=== PATIENT | male | born 1940 | race Caucasian/White ===

== ENCOUNTER 2018-11-30 07:58 | Observation (INO) | payer MEDICARE ==
[2018-11-30] VITALS (10 sets, daily range): BP systolic 111–145; BP diastolic 56–102
[~2018-11-30] VITALS: Ht 175.3 cm; Wt 68.0 kg
[~2018-11-30 07:58] MED LIST: ASPI-630 PO; BACITRACIN 50,000 UNIT in IV NORMAL SALINE 500ML BAG 500 ML IRR ONE; HYDROmorphone 2 MG/ML VIAL IV PRN; IV RINGERS,LACTATED 1000ML 1,000 ML IV SCH; LEVO25TA4 PO; LIDOCAINE 1% PF 2 ML VIAL. ID PRN; MORPHINE SULFATE 2 MG/ML VIAL. IV PRN; ONDANSETRON PF 4 MG/2 ML VIAL. IV PRN; PROCHLORPERAZINE 10 MG/2 ML VIAL. IV PRN; fentaNYL PF VIAL 100 MCG/2 ML VIAL IV PRN
[2018-11-30] MEDS ORDERED: FAMOTIDINE 20 MG/2 ML VIAL ONE (08:12)
[2018-11-30] MEDS ORDERED: LIDOCAINE 2% PF 5 ML VIAL. ONE (08:12)
[2018-11-30] MEDS ORDERED: ONDANSETRON PF 4 MG/2 ML VIAL. ONE (08:12)
[2018-11-30] MEDS ORDERED: PROPOFOL 20 ML IV ONE (08:12)
[2018-11-30] MEDS ORDERED: DEXAMETHASONE SOD PHOS 20 MG/5 ML VIAL. ONE (08:12)
[2018-11-30] MEDS ORDERED: SUCCINYLCHOLINE 200 MG/10 ML VIAL. ONE (08:14)
[2018-11-30] MEDS ORDERED: MIDAZOLAM HCL/PF 2 MG/2 ML VIAL. ONE (08:14)
[2018-11-30] MEDS ORDERED: fentaNYL PF VIAL 100 MCG/2 ML VIAL ONE (08:14)
[2018-11-30] MEDS ORDERED: BUPIVAC MPF-EPI 0.5%-1:200000 30 ML VIAL. ONE (08:26)
[2018-11-30] MEDS ORDERED: LIDOCAINE 4% KIT 4 ML SOLUTION. TP ONE (09:26)
[2018-11-30] MEDS ORDERED: ROCURONIUM 50 MG/5 ML VIAL. ONE (09:48)
[2018-11-30] MEDS ORDERED: ePHEDrine PF IN SALINE 50 MG/10 ML SYRINGE. IV ONE (09:53)
[2018-11-30] MEDS ORDERED: BACITRACIN 50,000 UNIT in IV NORMAL SALINE 500ML BAG 500 ML IRR ONE (10:00)
[2018-11-30] MEDS ORDERED: GLYCOPYRROLATE 1 MG/5 ML VIAL. ONE (10:06)
[2018-11-30] MEDS ORDERED: SEVOFLURANE 31 TO 60 MINUTES. IH ONE (10:36)
[2018-11-30] MEDS ORDERED: IV 1/2 NORMAL SALINE 1,000 ML IV SCH (10:44)
--- NOTE | 2018-11-30 10:44 | PDOC4 ---
Operative Note Operative Note Operative Note: Preoperative Diagnosis: Recurrent left inguinal hernia Postoperative Diagnosis: Same Procedure: Repair of recurrent left inguinal hernia with mesh Surgeon: Glynn Key Account Director: Lisa BLOCK Anesthesia: Gen. EBL: 10 mL Specimen: None Drains: None Complications: None Indication: The patient is a 78-year-old male who is referred with a recurrent left inguinal hernia. He was offered operative repair. The risks of surgery were discussed which include bleeding, infection, anesthetic risk, pain, hernia recurrence, potential need for additional surgery or procedure. He understands and would like to proceed. Description: The patient was taken to the operating room and placed supine on the operating table. Gen. anesthesia was performed. The left groin was shaved and prepped with ChloraPrep and draped in a standard surgical manner. An incision was made in the skin lines of the left groin with a scalpel. Cautery dissection was carried down to the external oblique aponeurosis. The aponeurosis was opened down the external ring. The patient did have some scar tissue due to prior hernia repair surgery. We were able to identify the vas deferens and other cord structures and they were encircled with a [place] drain. Inspection of the inguinal floor showed a small hernia defect. The edges of the hernia defect were dissected free. The extruded contents were reduced and the defect was filled with a medium Phasix mesh plug. The plug was sutured around its periphery with 2-0 Vicryl. The entire inguinal floor was then reinforced with a keyhole Prolene mesh patch. Inferiorly the mesh was sutured to the shelving edge of the inguinal ligament while superiorly it was sutured to the internal oblique muscle and aponeurosis. Upon completion the mesh rested well providing full coverage of the inguinal floor and the plug remained intact deep to it. The external oblique was closed over the mesh with 2-0 Vicryl. The subcutaneous tissues closed with 3-0 Vicryl. The skin was approximated with 4-0 Monocryl. Incision was infiltrated with half percent Marcaine with epinephrine. Steri-Strips and a sterile dressing were applied. The patient tolerated the procedure well and was sent to the recovery room in stable condition. At the end of the case all counts were correct. AVERY SOUSA MD Nov 30, 2018 10:44
[2018-11-30] MEDS ORDERED: 0.9 % SODIUM CHLORIDE 10 ML DISP.SYRIN. IV PRN (10:45)
[2018-11-30] MEDS ORDERED: MORPHINE SULFATE 2 MG/ML VIAL. IV PRN (10:45)
[2018-11-30] MEDS ORDERED: ONDANSETRON PF 4 MG/2 ML VIAL. IV PRN (10:45)
[2018-11-30] MEDS ORDERED: PROCHLORPERAZINE 10 MG/2 ML VIAL. IV PRN (10:45)
[2018-11-30] MEDS ORDERED: HYDROcodone/APAP 5/325MG 1 TAB TABLET PO PRN ×2 (10:45)
--- NOTE | 2018-11-30 12:25 | NUR ---
Pt arrives to unit via bed A&Ox4 c/o pain 10/25 with family at bedside. Offered pt medication at this time. Pt declines at this time. Dressing CDI. Pt explains he has not voided since before surgery. Explained to pt this RN will preform bladder scan if no urine output. Pt voices understanding. Admission requirements in progress. Pt laying in bed with call light in reach.
[2018-11-30] MEDS ORDERED: ACET500T68 PO (17:40)
--- NOTE | 2018-11-30 18:20 | NUR ---
Discharge orders placed. Discharge instructions/medications discussed with pt. Explained pt will need to keep original surgical dressing on until POD #3, after that dressing may be removed cleansed and incision left REGINALDO. Discussed s/s infection. Explained if s/s infection present notify Dr. Maki STAT. Pt voiced understanding. Tylenol to be taken for pain control. Pt to f/u with Dr. Maki [phone] in 2 weeks. Pt voiced understanding. IV removed without complications. Pt walked out to hospital exit with GLENNA Harmon and family member without complications.
[2018-12-01] MEDS ORDERED: LEVOTHYROXINE 25 MCG TABLET. PO SCH (06:00)
== END 2018-11-30 18:30 | disposition home or self-care (01) ==
LOC: SURG 07:58 → 4 NORTH 10:44
PROVIDERS: ADMIT Surgery; ATTEND Surgery
DX: K40.91 Unilateral inguinal hernia, without obstruction or gangrene, recurrent (principal); E03.9 Hypothyroidism, unspecified; F17.210 Nicotine dependence, cigarettes, uncomplicated
CPT/HCPCS: 49520; 51798; A7015; C1781; G0378; G0379; J0171; J0330; J0696; J1100; J2001; J2250; J2405; J2704; J3010; J3490; J7040; J7120